=== PATIENT | female | born 1955 | race Caucasian/White ===

== ENCOUNTER 2023-08-03 05:55 | Inpatient (IN) | payer OTHER ==
[~2023-08-03] VITALS: Ht 149.9 cm; Wt 54.9 kg
[2023-08-03] MEDS ORDERED: CEFAZOLIN SOD 2 GM in D5W 50 ML IV ONE (06:30)
[2023-08-03] MEDS ORDERED: ALEN10TA25 PO (07:05)
[2023-08-03] MEDS ORDERED: LOSA-413 PO (07:05)
[2023-08-03] MEDS ORDERED: NOR10 PO (07:05)
[2023-08-03] MEDS ORDERED: ROSU20TA2 PO (07:05)
[2023-08-03] MEDS ORDERED: PRO40 PO (07:05)
[2023-08-03] MEDS ORDERED: ROCURONIUM BROMIDE 10 MG/ML (ZEMURON) ONE (07:09)
[2023-08-03] MEDS ORDERED: PROPOFOL 200MG/ 20ML VIAL (DIPRIVAN) IV ONE (07:09)
[2023-08-03] MEDS ORDERED: MIDAZOLAM HCL/PF 2 MG/2 ML SYRINGE ONE (07:09)
[2023-08-03] MEDS ORDERED: NS IRRIG SOLN 1000 ML IR ONE (07:09)
[2023-08-03] MEDS ORDERED: SEVOFLURANE 15 MIN GAS INH ONE (07:09)
[2023-08-03] MEDS ORDERED: DEXAMETHASONE SOD PHOSPHATE 4 MG/ML VIAL ONE (07:09)
[2023-08-03] MEDS ORDERED: BUPIVACAINE /PF 0.5% 30 ML VIAL ONE (07:09)
[2023-08-03] MEDS ORDERED: fentaNYL CITRATE/PF 100 MCG/2 ML AMP ONE ×2 (07:09→07:40)
[2023-08-03] MEDS ORDERED: MIDAZOLAM HCL 2 MG/2 ML VIAL (VERSED) ONE (07:40)
[2023-08-03] MEDS ORDERED: ACETAMINOPHEN I.V. 1000 MG 0 ML IV ONE (08:23)
[2023-08-03] MEDS ORDERED: ACETAMINOPHEN I.V. 1000 MG 100 ML IV ONE (08:50)
[2023-08-03] MEDS ORDERED: BUPIVACAINE LIPOSOME/PF 266 MG/20 ML VIAL INFIL ONE (08:51)
[2023-08-03] MEDS ORDERED: LR 1,000 ML IV ONE (09:00)
[2023-08-03] MEDS ORDERED: HYDROcodone/ACETAMIN 5-325 MG TAB (NORCO/ VICODIN) PO PRN ×2 (10:00)
[2023-08-03] MEDS ORDERED: ACETAMINOPHEN 325 MG TABLET PO PRN (10:00)
[2023-08-03] MEDS ORDERED: NALOXONE HCL 0.4 MG/ML AMP (NARCAN) IVP PRN ×3 (10:00)
[2023-08-03] MEDS ORDERED: HYDROmorphone 1 MG/ML INJ. CARTRIDGE IVP PRN (10:00)
[2023-08-03] MEDS ORDERED: ONDANSETRON HCL 4 MG/2 ML VIAL IVP PRN (10:00)
[2023-08-03 11:10] VITALS: BP_SYST 112; PULSE 84; RESP 16; TEMP 97.9; O2SAT 97
[2023-08-03 11:59] VITALS: BP_SYST 112; PULSE 87; RESP 16; TEMP 97.9
[2023-08-03 12:34] VITALS: O2SAT 97
[2023-08-03] MEDS: CEFAZOLIN 1 GM IVPB PREMIX 50 ML IV SCH ×2 (14:26→21:28)
[2023-08-03 16:00] VITALS: BP_SYST 115; PULSE 94; RESP 17; TEMP 97.5; O2SAT 95
[2023-08-03 20:00] VITALS: BP_SYST 118; PULSE 87; RESP 18; TEMP 97.4; O2SAT 95
[2023-08-03] MEDS: FAMOTIDINE PF 20 MG/2 ML VIAL IVP SCH (21:29)
[2023-08-03] MEDS: D5/0.45 NS 1,000 ML IV SCH (22:56)
[2023-08-04] VITALS: BP_SYST 118; PULSE 61; RESP 18; TEMP 97.3; O2SAT 96
[2023-08-04 01:16] VITALS: BP_SYST 118; PULSE 87; RESP 18; TEMP 97.4; O2SAT 95
[2023-08-04] MEDS: D5/0.45 NS 1,000 ML IV SCH (05:00)
[2023-08-04 08:00] VITALS: BP_SYST 125; PULSE 78; RESP 18; TEMP 97.4; O2SAT 99
[2023-08-04] MEDS ORDERED: ENOXAPARIN SODIUM 30 MG/0.3 ML SYRINGE SUBCUT SCH (09:00)
[2023-08-04 09:20] VITALS: O2SAT 99
[2023-08-04] MEDS: FAMOTIDINE PF 20 MG/2 ML VIAL IVP SCH (09:55)
[2023-08-04 12:00] VITALS: BP_SYST 121; PULSE 85; RESP 18; TEMP 97.2; O2SAT 97
[2023-08-04 13:48] VITALS: BP_SYST 121; PULSE 85; RESP 18; TEMP 97.2; O2SAT 97
== END 2023-08-04 14:15 | disposition home or self-care (01) | DRG 355 ==
LOC: SMU 05:55
PROVIDERS: ADMIT Colon & Rectal Surgery; ATTEND Colon & Rectal Surgery
PROC: 0WUF0JZ Supplement Abdominal Wall with Synthetic Substitute, Open Approach (ICD-10-PCS; principal; 2023-08-03 07:50)
DX: K43.0 Incisional hernia with obstruction, without gangrene (principal); K66.0 Peritoneal adhesions (postprocedural) (postinfection)
CPT/HCPCS: 87081; 97116-GP; 97163-GP; 97530-GP; C1781; C9290; J0131; J0690; J1100; J1650; J2704; J3010; J3465; J3490; J7060